=== PATIENT | female | born 1965 | race Caucasian/White ===

== ENCOUNTER 2017-07-02 05:35 | Outpatient (CLI) | payer OTHER ==
[~2017-07-02] VITALS: Ht 154.9 cm; Wt 63.5 kg
[~2017-07-02 05:35] MED LIST: ALPR1TAB2 PO; CA C1TAB75 PO; CYCL10TA9 PO; DOCU-143 PO; DOCU-238 PO; FAMO-119 PO; HYDR-3812 PO; IBUP200C75 PO; ONDN4T PO
[2017-07-02] MEDS ORDERED: PANT40TA3 PO (12:13)
== END 2017-07-02 12:18 ==
LOC: PREOP 05:35
PROVIDERS: ATTEND Surgery
DX: Z01.818 Encounter for other preprocedural examination (principal); K21.9 Gastro-esophageal reflux disease without esophagitis; R19.5 Other fecal abnormalities

== ENCOUNTER 2017-07-06 06:44 | Day surgery (SDC) | payer OTHER ==
[~2017-07-06] VITALS: Ht 154.9 cm; Wt 63.5 kg
[~2017-07-06 06:44] MED LIST changes: +PANT40TA3 PO
[2017-07-06] MEDS ORDERED: LACTATED RINGERS 1,000 ML IV STA (07:09)
[2017-07-06] MEDS ORDERED: HURRICAINE EXT TUBE (BENZOCAINE) XX PRN (07:15)
[2017-07-06] MEDS ORDERED: LACTATED RINGERS 1,000 ML IV ONE (07:19)
[2017-07-06 07:25] VITALS: BP 108/74
[2017-07-06] MEDS ORDERED: PROPOFOL INJECTION 50 ML IV ONE (07:42)
[2017-07-06] MEDS ORDERED: MIDAZOLAM 2 MG/2 ML (VERSED) VIAL ONE (07:42)
[2017-07-06] MEDS ORDERED: HURRICAINE EXT TUBE (BENZOCAINE) ONE (08:19)
--- NOTE | 2017-07-06 08:53 | Progress Note-Post Operative ---
Post-Operative Progess Note Surgeon (s)/Event Decorator And Designer (s) Surgeon CASSANDRA COX DO Event Decorator And Designer: na Pre-Operative Diagnosis gerd, diarrhea Post-Operative Diagnosis small hiatal hernia, slight gastritis, normal colon Procedure & Operative Findings Date of Procedure 07/06/17 Procedure Performed/Findings egd c biopsy, colonoscopy Anesthesia Type per drug abuse social worker Estimated Blood Loss Estimated blood loss (mL): scant Specimens/Packing Specimens Removed antrum CASSANDRA COX DO Jul 06, 2017 8:52 am
--- NOTE | 2017-07-06 08:54 | Discharge Inst-Simple/Standard ---
Discharge Inst-Standard Patient Instructions/Follow Up Plan of Care/Instructions/FU: 2 weeks [place] Activity as Tolerated: Yes Discharge Diet: Regular Diet CASSANDRA COX DO Jul 06, 2017 8:54 am
[2017-07-06 09:10] VITALS: BP 82/56
[2017-07-06 09:40] VITALS: BP 107/71
[2017-07-06 09:45] VITALS: BP 107/71
--- NOTE | 2017-07-07 02:13 | OPERATIVE REPORT ---
DATE OF SERVICE: 07/06/2017 PREOPERATIVE DIAGNOSES: Gastroesophageal reflux and diarrhea. POSTOPERATIVE DIAGNOSES: Small hiatal hernia, gastritis, normal colon. PROCEDURE: EGD with biopsy and colonoscopy. ANESTHESIA: Per REVIEW ANALYST. SURGEON: Cassandra Vaz DO ESTIMATED BLOOD LOSS: Scant. INDICATIONS FOR PROCEDURE: The patient is a 51-year-old female with some GERD and chronic diarrhea. She understands the risks and benefits of the procedure and wishes to proceed with the procedure. Consent was signed in the chart. DESCRIPTION OF PROCEDURE: The patient was taken to the endoscopy suite, placed in the left lateral recumbent position. Timeout was performed. Scope was inserted in the mouth, down the esophagus, stomach and into the duodenum without difficulty. There were no polyps, masses or ulcerations within the duodenum. The scope was slowly retracted back into the stomach where it was further insufflated. There were some slight erythematous changes consistent with some slight gastritis. Biopsy of the antrum was obtained. Scope was retroflexed noting a small hiatal hernia. No other pathology noted. Scope was returned to its normal position, slowly withdrawn back into the distal esophagus. There were no erythematous changes. No polyps, masses or ulcerations. Scope was slowly retracted until completely removed, noting no other pathology. Digital rectal exam was performed. There were no palpable polyps, masses or ulcerations. The scope was inserted in the rectum and advanced all the way to the cecum with minimal difficulty. Prep was adequate with irrigation and suction. There were no polyps, masses or ulcerations within the cecum, ascending, transverse, descending and sigmoid colon. Once in the rectum, it was attempted to be retroflexed; however, she had a narrow rectum and therefore it was difficult; therefore, multiple insertions and retractions were made noting no other pathology. The patient tolerated the procedure well without any complications. She was taken to the recovery room in stable condition. She will follow up in the office in 2 weeks to discuss pathology results. She will need a repeat colonoscopy in 10 years unless family history of colon cancer, which would then be 5 years. If she has any problems prior to that, she should be reevaluated at that time. Job ID: [id number] DocumentID: [id number] Dictated Date: 07/06/2017 10:48:25 Electromedical Service Engineer Date: 07/06/2017 19:51:52 Dictated By: CASSANDRA VAZ DO
== END 2017-07-06 09:45 | disposition home or self-care (01) ==
LOC: ENDO 06:44
PROVIDERS: ATTEND Surgery
DX: K29.70 Gastritis, unspecified, without bleeding (principal); K44.9 Diaphragmatic hernia without obstruction or gangrene; R19.7 Diarrhea, unspecified; I10 Essential (primary) hypertension

== ENCOUNTER → 2017-07-08 | Outpatient (CLI) | payer OTHER ==
--- NOTE | 2017-07-08 11:39 | Diagnostic Imaging Report ---
Ultrasound of the liver. INDICATION: Increased alkaline phosphatase. FINDINGS: Pancreas is obscured. The liver is fairly homogeneous with no focal lesion seen. There is hepatopetal flow in the portal vein. The gallbladder has been removed. The CBD is not seen, likely obscured by bowel gas and not significantly enlarged. The right kidney is 9.3 cm in length with no hydronephrosis or focal lesion. No fluid collection is seen in the upper right abdomen. IMPRESSION: No definite abnormality. Dictated by: Dictated on workstation # [id number]
== END ==
LOC: RAD 08:14
PROVIDERS: ATTEND Family Medicine
DX: R74.8 Abnormal levels of other serum enzymes (principal)
CPT/HCPCS: 76705